=== PATIENT | male | born 1970 ===

== ENCOUNTER 2022-08-14 20:56 | Observation (INO) | payer BC ==
[2022-08-14 21:20] LABS: #Eosinphils 0.4 thou/uL (0.0-0.7); #Lymphocytes 2.3 thou/uL (1.20-3.40); #Monocytes 0.4 thou/uL (0.11-0.59); #Neutrophils 2.6 thou/uL (1.40-6.50); %Basophils 0.9 % (0.0-1.0); %Eosinophils 6.3 % (0.0-10.0); %Lymphocytes 39.9 % (21.0-51.0); %Monocytes 7.7 % (0.0-10.0); %Neutrophils 45.3 % (42.0-75.0); Hemoglobin 12.6 g/dL (14.0-18.0); Mean Corpuscular HGB CONC 34.5 g/dL (32.0-36.0); Mean Corpuscular Hemoglobin 31.7 pg (27.0-31.0); Mean Platelet Volume 7.2 fL (7.4-10.4); Platelet Count 219 10x3/uL (130-400); RBC Distribution Width 12.1 % (11.5-14.5); Red Blood Cell (RBC) Count 3.97 mill/uL (4.70-6.10); White Blood Cell (WBC) Count 5.6 10x3/uL (4.8-10.8)
[2022-08-14 21:34] LABS: ALT (SGPT) 35 U/L (8-55); AST (SGOT) 26 U/L (5-34); Albumin 3.6 g/dL (3.5-5.0); Alkaline Phosphatase 45 U/L (40-110); Anion Gap 13 mmol/L (10-20); BUN (Urea Nitrogen) 11 mg/dL (8.4-25.7); Bilirubin, Total 1.8 mg/dL (0.2-1.2); Calc. Creatinine Clearance 0 mL/min (70-130); Calcium 8.1 mg/dL (7.8-10.44); Carbon Dioxide 20 mmol/L (22-29); Chloride 106 mmol/L (98-107); Estimated GFR 75; Globulin 2.3 g/dL (2.4-3.5); Glucose 119 mg/dL (70-105); Magnesium 2.1 mg/dL (1.6-2.6); Potassium 3.9 mmol/L (3.5-5.1); Protein, Total 5.9 g/dL (6.0-8.3); Sodium 135 mmol/L (136-145)
[2022-08-15] MEDS: Sodium Chloride 0.9% 1,000 ML IV SCH ×2 (01:57→08:53)
[2022-08-15 02:24] VITALS: BMI 27.9
[2022-08-15 05:03] LABS: #Basophils 0.1 thou/uL (0.0-0.2); #Eosinphils 0.3 thou/uL (0.0-0.7); #Lymphocytes 1.4 thou/uL (1.20-3.40); #Monocytes 0.3 thou/uL (0.11-0.59); #Neutrophils 3.4 thou/uL (1.40-6.50); %Basophils 0.9 % (0.0-1.0); %Lymphocytes 25.7 % (21.0-51.0); %Monocytes 5.1 % (0.0-10.0); %Neutrophils 63.3 % (42.0-75.0); Hemoglobin 11.4 g/dL (14.0-18.0); Mean Corpuscular HGB CONC 34.1 g/dL (32.0-36.0); Mean Corpuscular Hemoglobin 31.4 pg (27.0-31.0); Mean Corpuscular Volume 92.3 fl (78.0-98.0); Mean Platelet Volume 7.2 fL (7.4-10.4); Platelet Count 243 10x3/uL (130-400); RBC Distribution Width 11.9 % (11.5-14.5); Red Blood Cell (RBC) Count 3.63 mill/uL (4.70-6.10); White Blood Cell (WBC) Count 5.3 10x3/uL (4.8-10.8)
[2022-08-15 05:26] LABS: Anion Gap 9 mmol/L (10-20); BUN (Urea Nitrogen) 13 mg/dL (8.4-25.7); Calc. Creatinine Clearance 99 mL/min (70-130); Calcium 8.1 mg/dL (7.8-10.44); Carbon Dioxide 23 mmol/L (22-29); Chloride 106 mmol/L (98-107); Estimated GFR 98; Glucose 181 mg/dL (70-105); Potassium 3.9 mmol/L (3.5-5.1); Sodium 134 mmol/L (136-145)
[2022-08-15 15:56] VITALS: BP 130/84; TEMP 97.8
== END 2022-08-15 17:05 | disposition home or self-care (01) ==
LOC: ERS 20:56 → SUATTDRO 20:56 → 2NO 08-15 01:29
PROVIDERS: ADMIT Family Medicine; ATTEND Internal Medicine
DX: R55 Syncope and collapse (principal); R00.1 Bradycardia, unspecified; J33.8 Other polyp of sinus; J32.4 Chronic pansinusitis; E78.5 Hyperlipidemia, unspecified; I08.8 Other rheumatic multiple valve diseases; Z20.822 Contact with and (suspected) exposure to COVID-19
CPT/HCPCS: 36415; 36416; 70450; 71045; 80048; 80053; 83735; 84146; 84443; 84484; 85025; 93005; 93306; 93880; 94760; 96372; G0378; J1650; J7050; U0003; U0005